=== PATIENT | female | born 1950 | race African-American/Black ===

== ENCOUNTER → 2016-10-13 | Outpatient (CLI) | payer OTHER, MEDICARE ==
--- NOTE | 2016-10-13 12:46 | RAD ---
Examination: MRI of the right proximal lower leg History: History of lateral tibial pain for 2 weeks. comparison: None available Technique: Multiplanar, multisequence MR imaging of the proximal calf was performed without contrast. Findings: The alignment of the proximal tibia-fibula joint grossly appears unremarkable. There is no obvious acute fracture or dislocation identified in the proximal tibia and proximal fibula. At the site of marker placement .on the lateral aspect .no definite evidence of mass or lesion visualized. The visualized neurovascular bundle grossly appears unremarkable. There is minimal edema identified in the subcutaneous region just anterior to the proximal tibia, nonspecific. There is a small nonleaking popliteal cyst identified. Partially visualized knee joint effusion is identified. Subchondral changes identified in the knee joint particularly in the lateral knee joint probably due to degeneration. Impression: 1. No obvious mass or lesion identified at the site of marker placement in the lateral aspect of the calf region. 2. A small leaking popliteal cyst is identified. 3. Moderate degenerative changes knee joint particularly lateral knee joint, recommend MRI right knee for further evaluation 4. Small knee joint effusion partially visualized.
== END | disposition home or self-care (01) ==
LOC: MRI 09:57
PROVIDERS: ATTEND Family Medicine
DX: M17.11 Unilateral primary osteoarthritis, right knee (principal); M71.20 Synovial cyst of popliteal space [Baker], unspecified knee; M25.461 Effusion, right knee
CPT/HCPCS: 73718

== ENCOUNTER → 2017-12-26 | Outpatient (CLI) | payer OTHER ==
[2017-12-26 14:31] LABS: ADD MAN DIFF? NO
[2017-12-26 14:36] LABS: BASO # 0.1 x10^3/uL (0.0-0.2); BASO % 1 % (0-3); EOS # 0.2 x10^3/uL (0.0-0.7); EOS % 2 % (0-3); HEMATOCRIT 44.5 % (36.0-47.0); HEMOGLOBIN 15.6 g/dL (12.0-15.5); LYMPH # 1.8 x10^3/uL (1.0-4.8); LYMPH % 20 % (24-48); MEAN CORPUSCULAR HEMOGLOBIN 32 pg (25-35); MEAN CORPUSCULAR HGB CONC 35 g/dL (31-37); MEAN CORPUSCULAR VOLUME 93 fL (79-100); MONO # 0.5 x10^3/uL (0.0-1.1); MONO % 6 % (0-9); NEUT # 6.5 x10^3uL (1.8-7.7); NEUT % 71 % (31-73); PLATELET COUNT 280 x10^3/uL (140-400); RED BLOOD COUNT 4.81 x10^6/uL (3.50-5.40); RED CELL DISTRIBUTION WIDTH 14.9 % (11.5-14.5); WHITE BLOOD COUNT 9.1 x10^3/uL (4.0-11.0)
[2017-12-26 14:46] LABS: PARTIAL THROMBOPLASTIN TIME 30 SEC (24-38); PROTHROMBIN TIME PATIENT 12.2 SEC (11.7-14.0)
[2017-12-26 14:54] LABS: ALBUMIN 3.6 g/dL (3.4-5.0); ANION GAP 10 (6-14); BLOOD UREA NITROGEN 17 mg/dL (7-20); CALCIUM 9.1 mg/dL (8.5-10.1); CARBON DIOXIDE 26 mmol/L (21-32); CHLORIDE 108 mmol/L (98-107); CREATININE 1.1 mg/dL (0.6-1.0); GFR 60.1; GLUCOSE 133 mg/dL (70-99); POTASSIUM 3.5 mmol/L (3.5-5.1); SODIUM 144 mmol/L (136-145)
[2017-12-26 15:33] LABS: BILIRUBIN,URINE SMALL (NEG); CLARITY,URINE CLEAR; COLOR,URINE YELLOW; GLUCOSE,URINE NEGATIVE (NEG); NITRITE,URINE NEGATIVE (NEG); PROTEIN,URINE 30 mg/dL (NEG-TRACE)
[2017-12-26 16:09] LABS: BACTERIA,URINE FEW /HPF (0-FEW); RBC,URINE OCC /HPF (0-2); SQUAMOUS EPITHELIAL CELL,UR FEW /LPF
[2017-12-26 16:10] LABS: HYALINE CASTS, URINE FEW /HPF
[2017-12-26 16:22] LABS: SEDIMENTATION RATE 32 (0-25)
[2017-12-27 04:21] LABS: HEMOGLOBIN A1C 6.8 % (4.8-5.6)
[2017-12-27 06:21] LABS: MRSA BY PCR Negative (Negative)
== END | disposition home or self-care (01) ==
LOC: SURGPAT 13:26
DX: I70.0 Atherosclerosis of aorta (principal); R79.1 Abnormal coagulation profile
CPT/HCPCS: 36415; 71046; 80048; 81001; 82040; 83036; 85025; 85610; 85651; 85730; 87086; 87641; 93005

== ENCOUNTER → 2018-02-07 | Outpatient (CLI) | payer OTHER | END | disposition home or self-care (01) | LOC: US 08:38 | DX: M79.605 Pain in left leg (principal); M79.89 Other specified soft tissue disorders | CPT/HCPCS: 93971 ==

== ENCOUNTER 2019-10-02 02:49 | Emergency (ER) | payer OTHER, MEDICARE ==
[~2019-10-02] VITALS: Ht 160 cm; Wt 92.3 kg
[~2019-10-02 02:49] MED LIST: AMLO5TAB10 PO; IBUP-1027 PO; RIVA10TA PO
[2019-10-02] MEDS ORDERED: NITROGLYCERIN SUBLINGUAL 0.4 MG BOTTLE OF 25. SL PRN (03:00)
--- NOTE | 2019-10-02 03:08 | PHYS DOC ---
Past Medical History Smoking Status: Current Every Day Smoker Adult General Chief Complaint Chief Complaint: CHEST PAIN HPI HPI 69-year-old female presents to the emergency room complaints of left chest pain, left breast pain, shortness of breath. Patient states it comes and goes, she d escribes the pain as achy sensation. She denies any nausea or vomiting. This happened possibly 1 hour prior to her arrival. She denies any past medical history including coronary artery disease. She does have history of hypertension as well as diabetes. She denies any new medications. She does states she's had a history of blood clots been on anticoagulation approximately 18 years ago. Nothing makes her pain worse, nothing makes her pain better. She denies any headache, visual change, nausea, vomiting, abdominal pain Review of Systems Review of Systems Constitutional: Denies fever or chills [] Respiratory: + sob Cardiovascular: No additional information not addressed in HPI [] GI: Denies abdominal pain, nausea, vomiting, bloody stools or diarrhea [] Musculoskeletal: Denies back pain or joint pain [] Integument: Denies rash or skin lesions [] Neurologic: Denies headache, focal weakness or sensory changes [] All other systems were reviewed and found to be within normal limits, except as documented in this note. Current Medications Current Medications Current Medications Medications (Trade) Dose Ordered Sig/[facility] Start Time Stop Time Status Last Admin Dose Admin Aspirin (Children'S Aspirin) 324 mg 1X ONCE 10/02/19 03:30 10/02/19 03:31 DC 10/02/19 03:12 324 MG Info (CONTRAST GIVEN -- Rx MONITORING) 1 each PRN DAILY PRN 10/02/19 04:15 10/04/19 04:14 Iohexol (Omnipaque 350 Mg/ml) 90 ml 1X ONCE 10/02/19 04:30 10/02/19 04:31 DC 10/02/19 04:14 90 ML Nitroglycerin (Nitrostat) 0.4 mg PRN Q5MIN PRN 10/02/19 03:00 10/03/19 02:59 10/02/19 03:12 0.4 MG Allergies Allergies Allergies Coded Allergies Type Severity Reaction Last Updated Verified No Known Drug Allergies 12/26/17 No Physical Exam Physical Exam Constitutional: Well developed, well nourished, no acute distress, non-toxic appearance. [] HENT: Normocephalic, atraumatic, bilateral external ears normal, oropharynx moist, no oral exudates, nose normal. [] Eyes: PERRLA, EOMI, conjunctiva normal, no discharge. [] Cardiovascular:Heart rate regular rhythm, no murmur [] Lungs & Thorax: Bilateral breath sounds clear to auscultation [] Abdomen: Bowel sounds normal, soft, no tenderness, no masses, no pulsatile masses. [] Skin: Warm, dry, no erythema, no rash. [] Extremities: No tenderness, no edema. [] Neurologic: Alert and oriented X 3, no focal deficits noted. [] Psychologic: Affect normal, judgement normal, mood normal. [] Current Patient Data Vital Signs Vital Signs Date Time Temp Pulse Resp B/P (MAP) Pulse Ox O2 Delivery O2 Flow Rate FiO2 10/02/19 03:49 88 18 156/82 (106) 98 Room Air 10/02/19 02:50 97.5 97.5 Lab Values Laboratory Tests Test 10/02/19 03:20 10/02/19 03:22 Urine Collection Type Unknown Urine Color Yellow Urine Clarity Clear Urine pH 7.0 Urine Specific [place] 1.010 Urine Protein Negative mg/dL (NEG-TRACE) Urine Glucose (UA) Negative mg/dL (NEG) Urine Ketones (Stick) Negative mg/dL (NEG) Urine Blood Trace (NEG) Urine Nitrite Negative (NEG) Urine Bilirubin Negative (NEG) Urine Urobilinogen Dipstick 0.2 mg/dL (0.2 mg/dL) Urine Leukocyte Esterase Small (NEG) Urine RBC 1-2 /HPF (0-2) Urine WBC 5-10 /HPF (0-4) Urine Squamous Epithelial Cells Few /LPF Urine Bacteria 0 /HPF (0-FEW) Urine Mucus Slight /LPF Urine Opiates Screen Neg (NEG) Urine Methadone Screen Neg (NEG) Urine Barbiturates Neg (NEG) Urine Phencyclidine Screen Neg (NEG) Urine Amphetamine/Methamphetamine Neg (NEG) Urine Benzodiazepines Screen Neg (NEG) Urine Cocaine Screen Neg (NEG) Urine Cannabinoids Screen Neg (NEG) Urine Ethyl Alcohol Neg (NEG) White Blood Count 5.5 x10^3/uL (4.0-11.0) Red Blood Count 3.86 x10^6/uL (3.50-5.40) Hemoglobin 13.1 g/dL (12.0-15.5) Hematocrit 38.7 % (36.0-47.0) Mean Corpuscular Volume 100 fL (79-100) Mean Corpuscular Hemoglobin 34 pg (25-35) Mean Corpuscular Hemoglobin Concent 34 g/dL (31-37) Red Cell Distribution Width 15.4 % (11.5-14.5) H Platelet Count 219 x10^3/uL (140-400) Neutrophils (%) (Auto) 68 % (31-73) Lymphocytes (%) (Auto) 17 % (24-48) L Monocytes (%) (Auto) 12 % (0-9) H Eosinophils (%) (Auto) 2 % (0-3) Basophils (%) (Auto) 1 % (0-3) Neutrophils # (Auto) 3.7 x10^3/uL (1.8-7.7) Lymphocytes # (Auto) 0.9 x10^3/uL (1.0-4.8) L Monocytes # (Auto) 0.7 x10^3/uL (0.0-1.1) Eosinophils # (Auto) 0.1 x10^3/uL (0.0-0.7) Basophils # (Auto) 0.0 x10^3/uL (0.0-0.2) D-Dimer (Reena) 0.80 ug/mlFEU (0.00-0.50) H Sodium Level 143 mmol/L (136-145) Potassium Level 3.6 mmol/L (3.5-5.1) Chloride Level 106 mmol/L (98-107) Carbon Dioxide Level 26 mmol/L (21-32) Anion Gap 11 (6-14) Blood Urea Nitrogen 15 mg/dL (7-20) Creatinine 0.9 mg/dL (0.6-1.0) Estimated GFR (Cockcroft-Gault) 75.3 BUN/Creatinine Ratio 17 (6-20) Glucose Level 132 mg/dL (70-99) H Calcium Level 8.9 mg/dL (8.5-10.1) Magnesium Level 2.0 mg/dL (1.8-2.4) Total Bilirubin 0.2 mg/dL (0.2-1.0) Aspartate Amino Transferase (AST) 23 U/L (15-37) Alanine Aminotransferase (ALT) 22 U/L (14-59) Alkaline Phosphatase 141 U/L (46-116) H Troponin I Quantitative < 0.017 ng/mL (0.000-0.055) IC-Vyc-B-Type Natriuretic Peptide 43 pg/mL (0-124) Total Protein 6.9 g/dL (6.4-8.2) Albumin 3.5 g/dL (3.4-5.0) Albumin/Globulin Ratio 1.0 (1.0-1.7) Laboratory Tests 10/02/19 03:22 Laboratory Tests 10/02/19 03:22 EKG EKG EKG reviewed interpretation time 0 300 normal sinus rhythm, normal axis, no evidence of ST elevation appreciated.[] Radiology/Procedures Radiology/Procedures [address] [address] IMAGING REPORT Signed PATIENT: EMA HOFFMANN ACCOUNT: [id number] : 1950 LOCATION: ER AGE: 69 SEX: F EXAM STATUS: REG ER ORD. PHYSICIAN: AWAIS CABRERA MD REASON: Chest Pain PROCEDURE: PORTABLE CHEST 1V PORTABLE CHEST 1V History: Chest pain Comparison: December 26, 2017 Findings: No consolidation or pleural effusion. Normal heart size. No pneumothorax. Bilateral glenohumeral DJD. Impression: 1. No acute cardiopulmonary process. Electronically signed by: Harjinder Hickey DO (10/02/2019 3:17 AM) [id number] DICTATED and SIGNED BY: HARJINDER HICKEY DO DATE: 10/02/19 0317 [] [address] [address] IMAGING REPORT Signed PATIENT: EMA HOFFMANN ACCOUNT: [id number] : 1950 LOCATION: ER AGE: 69 SEX: F EXAM STATUS: REG ER ORD. PHYSICIAN: AWAIS CABRERA MD REASON: left chest pain, history of DVT/PE, elevated ddimer PROCEDURE: CT ANGIOGRAPHY CHEST CT ANGIOGRAPHY CHEST History: Left chest pain. History of DVT. Technique: CT of the chest was performed with contrast. PE protocol. Maximum intensity projection coronal and sagittal reconstructions were performed. Exposure: One or more of the following individualized dose reduction techniques were utilized for this examination: 1. Automated exposure control 2. Adjustment of the mA and/or kV according to patient size 3. Use of iterative reconstruction technique. Comparison: None Findings: Chest: There regions of eccentric thrombus within the right lower lobe segmental and left lower lobe segmental pulmonary arteries. No occlusion to suggest acute pulmonary embolism. No aortic aneurysm or dissection. Mild atheromatous plaque. Calcified right hilar lymph nodes and calcified pulmonary nodules, likely prior granulomatous disease. Pulmonary emphysema. No consolidation or pleural effusion. Lobulated nodule within the right middle lobe measures 1.0 x 0.8 cm (series 3 image 85). 3 mm 2 mm left upper lobe pulmonary nodule (image 64). Left upper lobe pulmonary nodule (image 46). 3 mm right upper lobe pulmonary nodule (image 54). Upper abdomen: Severe right hydronephrosis partially imaged. Cortical thinning on the right. Bones: No pathologic osseous lesions. Impression: 1. Eccentric thrombus within the bilateral lower lobe pulmonary arteries, may indicate sequelae of chronic embolism. No findings to suggest acute pulmonary embolism. 2. Right middle lobe lobulated nodules. Recommend comparison with prior imaging studies. If prior imaging studies are not available, recommend 3 month follow-up, PET/CT or biopsy. 3. Additional small pulmonary nodules. Recommend attention on follow-up. 4. Pulmonary emphysema. 5. Severe right hydronephrosis with cortical thinning partially imaged. Electronically signed by: Harjinder Hickey DO (10/02/2019 4:40 AM) [id number] DICTATED and SIGNED BY: HARJINDER HICKEY DO DATE: 10/02/19 0440 Course & Med Decision Making Course & Med Decision Making Pertinent Labs and Imaging studies reviewed. (See chart for details) []69-year-old female presents to the emergency room complaints of left chest pain, left breast pain, shortness of breath. Patient states it comes and goes, she describes the pain as achy sensation. She denies any nausea or vomiting. This happened possibly 1 hour prior to her arrival. She denies any past medical history including coronary artery disease. She does have history of hypertension as well as diabetes. She denies any new medications. She does states she's had a history of blood clots been on anticoagulation approximately 18 years ago. Nothing makes her pain worse, nothing makes her pain better. She denies any headache, visual change, nausea, vomiting, abdominal pain Labs reviewed/Imaging reviewed Trop/BNP within normal limits Ddimer - elevated 0.80 (history of DVT/PE) CTA reviewed Dragon Disclaimer Dragon Disclaimer This electronic medical record was generated, in whole or in part, using a voice recognition dictation system. The HEART Score for CP Pts HEART Score for Chest Pain: HEART Score for Chest Pain Response (Comments) Value History Slighlty/Non-Suspicious 0 ECG Normal 0 Age > 65 2 Risk Factors 1 or 2 Risk Factors 1 Troponin < Normal Limit 0 Total 3 Risk Factors: Risk Factors: DM, Current or recent (<one month) smoker, HTN, HLP, family history of CAD, obesity. Risk Scores: Score 0 - 3: 2.5% MACE over next 6 weeks - Discharge Home Score 4 - 6: 20.3% MACE over next 6 weeks - Admit for Clinical Observation Score 7 - 10: 72.7% MACE over next 6 weeks - Early Invasive Strategies Departure Departure Impression: Primary Impression: Chest pain Additional Impression: Pulmonary nodule Disposition: HOME, SELF-CARE Condition: IMPROVED Referrals: ILYA LIU MD (PCP) Patient Instructions: Chest Pain Observation, Pulmonary Nodule, [id number] Additional Instructions: Cardiac enzymes negative x [address] chest without evidence of new/acute PE Right middle lobe nodules. Recommend 3 month follow-up, PET/CT or biopsy. Pulmonary emphysema appreciated on CT Nitroglycerin rx provided from ER - use as directed ASA daily (81mg) Recommend follow up with PCP in 3 - 5 days Scripts Nitroglycerin (NITROGLYCERIN SubLingual) 0.4 Mg Tab.subl 0.4 MG SL PRN Q5MIN PRN for CHEST PAIN, #1 BOTTLE Prov: AWAIS CABRERA MD 10/02/19 Problem Qualifiers Primary Impression: Chest pain Chest pain type: unspecified Qualified Codes: R07.9 - Chest pain, unspecified AWAIS CABRERA MD Oct 02, 2019 03:08
--- NOTE | 2019-10-02 03:21 | RAD ---
PORTABLE CHEST 1V History: Chest pain Comparison: December 26, 2017 Findings: No consolidation or pleural effusion. Normal heart size. No pneumothorax. Bilateral glenohumeral DJD. Impression: 1. No acute cardiopulmonary process. Electronically signed by: Harjinder Hickey DO (10/02/2019 3:17 AM) [id number]
[2019-10-02 03:29] LABS: BASO % 1 % (0-3); EOS # 0.1 x10^3/uL (0.0-0.7); EOS % 2 % (0-3); HEMATOCRIT 38.7 % (36.0-47.0); HEMOGLOBIN 13.1 g/dL (12.0-15.5); LYMPH # 0.9 x10^3/uL (1.0-4.8); LYMPH % 17 % (24-48); MEAN CORPUSCULAR HEMOGLOBIN 34 pg (25-35); MEAN CORPUSCULAR HGB CONC 34 g/dL (31-37); MEAN CORPUSCULAR VOLUME 100 fL (79-100); MONO # 0.7 x10^3/uL (0.0-1.1); MONO % 12 % (0-9); NEUT # 3.7 x10^3/uL (1.8-7.7); NEUT % 68 % (31-73); PLATELET COUNT 219 x10^3/uL (140-400); RED BLOOD COUNT 3.86 x10^6/uL (3.50-5.40); RED CELL DISTRIBUTION WIDTH 15.4 % (11.5-14.5); WHITE BLOOD COUNT 5.5 x10^3/uL (4.0-11.0)
[2019-10-02] MEDS ORDERED: ASPIRIN CHEWABLE 81 MG TABLET. PO ONE (03:30)
[2019-10-02 03:33] LABS: BILIRUBIN,URINE NEGATIVE (NEG); CLARITY,URINE CLEAR; COLOR,URINE YELLOW; NITRITE,URINE NEGATIVE (NEG); PROTEIN,URINE NEGATIVE (NEG-TRACE); UROBILINOGEN,URINE 0.2 mg/dL (0.2 mg/dL)
[2019-10-02 03:38] LABS: AMPHETAMINE/METHAMPHETAMINE NEG (NEG); BARBITURATES NEG (NEG); BENZODIAZEPINES NEG (NEG); CANNABINOIDS NEG (NEG); COCAINE NEG (NEG); METHADONE NEG (NEG); OPIATES NEG (NEG); PHENCYCLIDINE NEG (NEG)
[2019-10-02 03:41] LABS: BACTERIA,URINE 0 /HPF (0-FEW); SQUAMOUS EPITHELIAL CELL,UR FEW /LPF
[2019-10-02 03:49] LABS: CALCIUM 8.9 mg/dL (8.5-10.1); CREATININE 0.9 mg/dL (0.6-1.0); GFR 75.3; POTASSIUM 3.6 mmol/L (3.5-5.1)
[2019-10-02 03:54] LABS: ALBUMIN 3.5 g/dL (3.4-5.0); TOTAL BILIRUBIN 0.2 mg/dL (0.2-1.0); TOTAL PROTEIN 6.9 g/dL (6.4-8.2)
[2019-10-02] MEDS ORDERED: CONTRAST GIVEN. MC PRN (04:15)
[2019-10-02] MEDS ORDERED: IOHEXOL 350 MG/ML 100 ML VIAL. IV ONE (04:30)
--- NOTE | 2019-10-02 04:43 | RAD ---
CT ANGIOGRAPHY CHEST History: Left chest pain. History of DVT. Technique: CT of the chest was performed with contrast. PE protocol. Maximum intensity projection coronal and sagittal reconstructions were performed. Exposure: One or more of the following individualized dose reduction techniques were utilized for this examination: 1. Automated exposure control 2. Adjustment of the mA and/or kV according to patient size 3. Use of iterative reconstruction technique. Comparison: None Findings: Chest: There regions of eccentric thrombus within the right lower lobe segmental and left lower lobe segmental pulmonary arteries. No occlusion to suggest acute pulmonary embolism. No aortic aneurysm or dissection. Mild atheromatous plaque. Calcified right hilar lymph nodes and calcified pulmonary nodules, likely prior granulomatous disease. Pulmonary emphysema. No consolidation or pleural effusion. Lobulated nodule within the right middle lobe measures 1.0 x 0.8 cm (series 3 image 85). 3 mm 2 mm left upper lobe pulmonary nodule (image 64). Left upper lobe pulmonary nodule (image 46). 3 mm right upper lobe pulmonary nodule (image 54). Upper abdomen: Severe right hydronephrosis partially imaged. Cortical thinning on the right. Bones: No pathologic osseous lesions. Impression: 1. Eccentric thrombus within the bilateral lower lobe pulmonary arteries, may indicate sequelae of chronic embolism. No findings to suggest acute pulmonary embolism. 2. Right middle lobe lobulated nodules. Recommend comparison with prior imaging studies. If prior imaging studies are not available, recommend 3 month follow-up, PET/CT or biopsy. 3. Additional small pulmonary nodules. Recommend attention on follow-up. 4. Pulmonary emphysema. 5. Severe right hydronephrosis with cortical thinning partially imaged. Electronically signed by: Harjinder Hickey DO (10/02/2019 4:40 AM) [id number]
[2019-10-02] MEDS ORDERED: NITR0.4T22 SL (04:56)
[2019-10-02 05:54] VITALS: BP 148/84
--- NOTE | 2019-10-02 06:08 | EKG ---
[facility] [address] [place] [address] Test Date: 2019-10-02 Test Time: 03:00:50 Pat Name: EMA HOFFMANN Department: Room: Gender: F Hr Clerk: : 1950 Requested By: AWAIS CABRERA Order Number: [id number] Reading MD: Measurements Intervals [place] Rate: 103 P: 54 SD: 192 QRS: 36 QRSD: 82 T: 54 QT: 336 QTc: 442 Interpretive Statements SINUS TACHYCARDIA ATRIAL PREMATURE COMPLEX(ES) OTHERWISE NORMAL ECG No previous ECG available for comparison
== END 2019-10-02 05:58 | disposition home or self-care (01) ==
LOC: ER 02:49
DX: R07.89 Other chest pain (principal); R91.8 Other nonspecific abnormal finding of lung field; N64.4 Mastodynia; R06.02 Shortness of breath; F17.200 Nicotine dependence, unspecified, uncomplicated; Z79.82 Long term (current) use of aspirin
CPT/HCPCS: 36415; 71045; 71275; 80053; 80307; 81001; 83735; 83880; 84484; 85025; 85379; 87086; 93005; 99285; Q9967

== ENCOUNTER 2021-03-27 18:35 | Emergency (ER) | payer OTHER, MEDICARE ==
[~2021-03-27] VITALS: Ht 162.6 cm; Wt 88.6 kg
[~2021-03-27 18:35] MED LIST changes: +AMLO-186 PO; -AMLO5TAB10 PO; +NITR0.4T22 SL
--- NOTE | 2021-03-27 22:34 | ED.ADGEN ---
Past Medical History Past Medical History: Diabetes-Type II, Hypertension, Other Additional Past Medical Histor: SKIN CANCER, BLOOD CLOTS Past Surgical History: Hysterectomy, Other Additional Past Surgical Histo: LEFT SHOULDER, CARPAL TUNNEL, CANCER REMOVAL SURGERY Smoking Status: Never Smoker Alcohol Use: None General Adult EDM: Chief Complaint: ABDOMINAL PAIN HPI: HPI: Patient is a 71 year old female coming in for left-sided abdominal pain. Patient states the pain has been mostly with "it present for the past 3 weeks. See her primary care provider was diagnosed with an acid medication and symptoms not getting better. Patient states she has had. Decreased p.o. intake because she feels full after a few bites of food. Has had a sour taste in her throat. States she normally has daily bowel movements presently been having bowel movements 3 times in the past week. Denies any urinary changes. Denies any abdominal surgical history. Has a history of vulvar cancer treated with chemo and radiation. Has had both of her Covid vaccines. Review of Systems: Review of Systems: All other systems within normal limits except for as noted in the HPI Current Medications: Current Medications Medications (Trade) Dose Ordered Sig/Nick Start Time Stop Time Status Last Admin Dose Admin Fentanyl Citrate (Fentanyl 2ml Vial) 75 mcg 1X ONCE 03/27/21 23:00 03/27/21 23:01 DC 03/27/21 23:26 75 MCG Info (CONTRAST GIVEN -- Rx MONITORING) 1 each PRN DAILY PRN 03/27/21 23:45 03/29/21 23:44 Iohexol (Omnipaque 300 Mg/ml) 75 ml 1X ONCE 03/28/21 00:15 03/28/21 00:16 DC 03/27/21 23:58 75 ML Multi-Ingredient Mouthwash/Gargle (Gi Cocktail) 20 ml 1X ONCE 03/28/21 01:30 03/28/21 01:31 DC 03/28/21 01:37 20 ML Ondansetron HCl (Zofran) 4 mg 1X ONCE 03/27/21 23:00 03/27/21 23:01 DC 03/27/21 23:25 4 MG Allergies: Allergies: Allergies Coded Allergies Type Severity Reaction Last Updated Verified adhesive tape Allergy Unknown 03/27/21 Yes Physical Exam: PE: Constitutional: Well developed, well nourished, no acute distress, non-toxic appearance. [] HENT: Normocephalic, atraumatic, bilateral external ears normal, nose normal. [] Eyes: PERRLA, conjunctiva normal, no discharge. [] Neck: No rigidity, supple, no stridor. [] Cardiovascular: Regular rate and rhythm, brisk cap refill [] Lungs & Thorax: Non labored symmetric respirations, no tachypnea or respiratory distress [] Abdomen: Soft, nondistended, guarding palpation on left upper and lower quadrant Skin: Warm, dry, no erythema, no rash. [] Back: Unremarkable Extremities: No deformities, range of motion grossly intact, no lower extremity edema [] Neurologic: Alert and oriented X 3, no focal deficits noted. [] Psychologic: Affect normal, judgement normal, mood normal. [] Current Patient Data: Labs: Laboratory Tests Test 03/27/21 20:07 03/27/21 23:10 Urine Collection Type Unknown Urine Color Yellow Urine Clarity Clear Urine pH 5.5 (<5.0-8.0) Urine Specific Sumner 1.010 (1.000-1.030) Urine Protein Negative mg/dL (NEG-TRACE) Urine Glucose (UA) Negative mg/dL (NEG) Urine Ketones (Stick) Negative mg/dL (NEG) Urine Blood Trace (NEG) Urine Nitrite Negative (NEG) Urine Bilirubin Negative (NEG) Urine Urobilinogen Dipstick 0.2 mg/dL (0.2 mg/dL) Urine Leukocyte Esterase Trace (NEG) Urine RBC Occ /HPF (0-2) Urine WBC 5-10 /HPF (0-4) Urine Squamous Epithelial Cells Few /LPF Urine Bacteria 0 /HPF (0-FEW) Urine Mucus Slight /LPF White Blood Count 5.0 x10^3/uL (4.0-11.0) Red Blood Count 4.16 x10^6/uL (3.50-5.40) Hemoglobin 13.3 g/dL (12.0-15.5) Hematocrit 39.0 % (36.0-47.0) Mean Corpuscular Volume 94 fL (79-100) Mean Corpuscular Hemoglobin 32 pg (25-35) Mean Corpuscular Hemoglobin Concent 34 g/dL (31-37) Red Cell Distribution Width 15.2 % (11.5-14.5) H Platelet Count 278 x10^3/uL (140-400) Neutrophils (%) (Auto) 67 % (31-73) Lymphocytes (%) (Auto) 19 % (24-48) L Monocytes (%) (Auto) 11 % (0-9) H Eosinophils (%) (Auto) 2 % (0-3) Basophils (%) (Auto) 1 % (0-3) Neutrophils # (Auto) 3.4 x10^3/uL (1.8-7.7) Lymphocytes # (Auto) 0.9 x10^3/uL (1.0-4.8) L Monocytes # (Auto) 0.6 x10^3/uL (0.0-1.1) Eosinophils # (Auto) 0.1 x10^3/uL (0.0-0.7) Basophils # (Auto) 0.0 x10^3/uL (0.0-0.2) Sodium Level 138 mmol/L (136-145) Potassium Level 4.0 mmol/L (3.5-5.1) Chloride Level 102 mmol/L (98-107) Carbon Dioxide Level 27 mmol/L (21-32) Anion Gap 9 (6-14) Blood Urea Nitrogen 11 mg/dL (7-20) Creatinine 1.0 mg/dL (0.6-1.0) Estimated GFR (Cockcroft-Gault) 66.3 BUN/Creatinine Ratio 11 (6-20) Glucose Level 99 mg/dL (70-99) Calcium Level 9.5 mg/dL (8.5-10.1) Total Bilirubin 0.4 mg/dL (0.2-1.0) Aspartate Amino Transferase (AST) 16 U/L (15-37) Alanine Aminotransferase (ALT) 20 U/L (14-59) Alkaline Phosphatase 135 U/L (46-116) H Troponin I Quantitative < 0.017 ng/mL (0.000-0.055) QD-Red-X-Type Natriuretic Peptide 161 pg/mL (0-124) H Total Protein 7.7 g/dL (6.4-8.2) Albumin 3.1 g/dL (3.4-5.0) L Albumin/Globulin Ratio 0.7 (1.0-1.7) L Lipase 47 U/L (73-393) L Laboratory Tests 03/27/21 23:10 Laboratory Tests 03/27/21 23:10 Vital Signs: Vital Signs Date Time Temp Pulse Resp B/P (MAP) Pulse Ox O2 Delivery O2 Flow Rate FiO2 03/27/21 23:26 16 96 03/27/21 19:50 98.6 94 139/64 (105) Room Air 98.6 EKG: EKG: Sinus rhythm, heart rate 60 bpm, normal axis, no ST elevation or depression, no ectopy. [] Heart Score: C/O Chest Pain: Yes HEART Score for Chest Pain: HEART Score for Chest Pain Response (Comments) Value History Slighlty/Non-Suspicious 0 ECG Normal 0 Age > 65 2 Risk Factors 1 or 2 Risk Factors 1 Troponin < Normal Limit 0 Total 3 Risk Factors: Risk Factors: DM, Current or recent (<one month) smoker, HTN, HLP, family history of CAD, obesity. Risk Scores: Score 0 - 3: 2.5% MACE over next 6 weeks - Discharge Home Score 4 - 6: 20.3% MACE over next 6 weeks - Admit for Clinical Observation Score 7 - 10: 72.7% MACE over next 6 weeks - Early Invasive Strategies Radiology/Procedures: Radiology/Procedures: [facility] [address] [place], [place] [id number] IMAGING REPORT Signed PATIENT: EMA HOFFMANN ACCOUNT: [id number] : 1950 LOCATION: ER AGE: 71 SEX: F EXAM STATUS: REG ER ORD. PHYSICIAN: KANDY ALEXANDER MD REASON: left abd pain, OMNI 300, 75 ML IV PROCEDURE: CT ABD PELV W/ IV CONTRST ONLY Exam: CT abdomen/pelvis with intravenous contrast Indication: Left-sided abdominal pain Comparison: None Technique: Helical CT imaging performed of the abdomen and pelvis after the intravenous administration of 75 mL Omnipaque 300 intravenous contrast. Sagittal and coronal reformats were obtained. One or more of the following individualized dose reduction techniques were utilized for this examination: 1. Automated exposure control 2. Adjustment of the mA and/or kV according to patient size 3. Use of iterative reconstruction technique. Findings: Lower chest: Lung bases are clear. The heart is normal in size. Liver: The liver is normal in size and diffusely decreased in attenuation. No focal liver lesion. Gallbladder/Biliary Tree: Normal. Pancreas: Mild diffuse pancreatic atrophy. Spleen: There are calcified splenic granulomas. No splenomegaly. Adrenal Glands: Normal. Kidneys/Ureters/Bladder: There is severe right hydroureteronephrosis due to a 9 mm calculus in the mid to distal right ureter. There is an additional 8 mm calculus in the distal right ureter. There is severe diffuse cortical thinning of the right kidney. The left kidney and ureter are normal. The bladder is normal. Reproductive Organs: Uterus is surgically absent. No adnexal mass. Stomach, small bowel, and colon: The stomach, small bowel, appendix, and colon are normal. Vasculature: The infrarenal abdominal aorta is mildly enlarged measuring 2.8 cm. There is moderate calcified aortoiliac atherosclerosis. Lymph Nodes: No lymphadenopathy. Peritoneum and retroperitoneum: No free fluid or free air. Bones: There is grade 1 anterolisthesis at L4-L5 and severe degenerative disc disease at L3-L4, L4-L5, L5-S1. There is a large left paracentral disc protrusion at L3-L4 resulting in severe left lateral recess narrowing, severe central canal narrowing, and severe narrowing of the left neural foramen. Probable moderate to severe canal narrowing at L4-L5 and moderate canal narrowing at L5-S1. There is moderate bilateral foraminal narrowing at L4-L5 and moderate right and mild left foraminal narrowing at L5-S1. There is moderate lower thoracic degenerative disc disease. Impression: 1. Severe chronic right hydroureteronephrosis due to a 9 mm calculus in the mid to distal right ureter. There is an additional 8 mm calculus in the more distal right ureter. There is severe cortical thinning of the right kidney. 2. Severe degenerative disc disease at L3-L4 through L5-S1 with canal and foraminal narrowing. This is greatest at L3-L4 where there is a large left paracentral disc protrusion resulting in severe left lateral recess, canal, and left foraminal narrowing. 3. Hepatic steatosis. 4. Mildly enlarged infrarenal abdominal aorta measuring 2.8 cm. Electronically signed by: Kandy Garcia MD (03/28/2021 1:07 AM) [id number] DICTATED and SIGNED BY: KANDY GARCIA MD DATE: 03/28/21 [id number] [] Course & Med Decision Making: Course & Med Decision Making Patient's work-up unremarkable. Patient states she has a known kidney stone on the right side and is followed with urologist every [address] evidence of etiology explaining patient's left upper quadrant abdominal pain, but history and patient's consult sounds like reflux and pain with eating suggest gastric source. Patient has not had a EGD but has discussed it with her primary care. Patient will try Carafate for symptoms and to call her primary care tomorrow to continue with follow-up with GI for endoscopy. Dragon Disclaimer: Dragon Disclaimer: This electronic medical record was generated, in whole or in part, using a voice recognition dictation system. Departure Departure Impression: Primary Impression: Abdominal pain Disposition: HOME / SELF CARE / HOMELESS Condition: STABLE Referrals: ILYA LIU MD (PCP) Patient Instructions: Abdominal Pain Scripts Sucralfate (CARAFATE) 1 Gm Tablet 1 TAB PO BID PRN for ABDOMINAL PAIN for 10 Days, #20 TAB 0 Refills Prov: KANDY ALEXANDER MD 03/28/21 KANDY ALEXANDER MD Mar 27, 2021 22:34
[2021-03-27 22:47] LABS: BILIRUBIN,URINE NEGATIVE (NEG); CLARITY,URINE CLEAR; COLOR,URINE YELLOW; NITRITE,URINE NEGATIVE (NEG); PH,URINE 5.5 (<5.0-8.0); PROTEIN,URINE NEGATIVE (NEG-TRACE); UROBILINOGEN,URINE 0.2 mg/dL (0.2 mg/dL)
[2021-03-27 22:58] LABS: RBC,URINE OCC /HPF (0-2)
[2021-03-27 22:59] LABS: BACTERIA,URINE 0 /HPF (0-FEW)
[2021-03-27] MEDS ORDERED: ONDANSETRON PF 4 MG/2 ML VIAL. IVP ONE (23:00)
[2021-03-27] MEDS ORDERED: fentaNYL PF VIAL 100 MCG/2 ML VIAL IVP ONE (23:00)
[2021-03-27 23:17] LABS: BASO % 1 % (0-3); EOS # 0.1 x10^3/uL (0.0-0.7); EOS % 2 % (0-3); HEMOGLOBIN 13.3 g/dL (12.0-15.5); LYMPH # 0.9 x10^3/uL (1.0-4.8); LYMPH % 19 % (24-48); MEAN CORPUSCULAR HEMOGLOBIN 32 pg (25-35); MEAN CORPUSCULAR HGB CONC 34 g/dL (31-37); MEAN CORPUSCULAR VOLUME 94 fL (79-100); MONO # 0.6 x10^3/uL (0.0-1.1); MONO % 11 % (0-9); NEUT # 3.4 x10^3/uL (1.8-7.7); NEUT % 67 % (31-73); PLATELET COUNT 278 x10^3/uL (140-400); RED BLOOD COUNT 4.16 x10^6/uL (3.50-5.40); RED CELL DISTRIBUTION WIDTH 15.2 % (11.5-14.5)
[2021-03-27 23:30] LABS: CALCIUM 9.5 mg/dL (8.5-10.1); GFR 66.3
[2021-03-27 23:38] LABS: ALBUMIN 3.1 g/dL (3.4-5.0); ALBUMIN/GLOBULIN RATIO 0.7 (1.0-1.7); TOTAL BILIRUBIN 0.4 mg/dL (0.2-1.0); TOTAL PROTEIN 7.7 g/dL (6.4-8.2)
[2021-03-27] MEDS ORDERED: CONTRAST GIVEN. MC PRN (23:45)
[2021-03-28] MEDS ORDERED: IOHEXOL 300 MG/ML 100ML VIAL. IV ONE (00:15)
--- NOTE | 2021-03-28 00:54 | EKG ---
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
--- NOTE | 2021-03-28 01:10 | RAD ---
Exam: CT abdomen/pelvis with intravenous contrast Indication: Left-sided abdominal pain Comparison: None Technique: Helical CT imaging performed of the abdomen and pelvis after the intravenous administratio n of 75 mL Omnipaque 300 intravenous contrast. Sagittal and coronal reformats were obtained. One or more of the following individualized dose reduction techniques were utilized for this examinat ion: 1. Automated exposure control 2. Adjustment of the mA and/or kV according to patient size 3. Use of iterative reconstruction technique. Findings: Lower chest: Lung bases are clear. The heart is normal in size. Liver: The liver is normal in size and diffusely decreased in attenuation. No focal liver lesion. Gallbladder/Biliary Tree: Normal. Pancreas: Mild diffuse pancreatic atrophy. Spleen: There are calcified splenic granulomas. No splenomegaly. Adrenal Glands: Normal. Kidneys/Ureters/Bladder: There is severe right hydroureteronephrosis due to a 9 mm calculus in the mi d to distal right ureter. There is an additional 8 mm calculus in the distal right ureter. There is s evere diffuse cortical thinning of the right kidney. The left kidney and ureter are normal. The bladd er is normal. Reproductive Organs: Uterus is surgically absent. No adnexal mass. Stomach, small bowel, and colon: The stomach, small bowel, appendix, and colon are normal. Vasculature: The infrarenal abdominal aorta is mildly enlarged measuring 2.8 cm. There is moderate ca lcified aortoiliac atherosclerosis. Lymph Nodes: No lymphadenopathy. Peritoneum and retroperitoneum: No free fluid or free air. Bones: There is grade 1 anterolisthesis at L4-L5 and severe degenerative disc disease at L3-L4, L4-L5 , L5-S1. There is a large left paracentral disc protrusion at L3-L4 resulting in severe left lateral recess narrowing, severe central canal narrowing, and severe narrowing of the left neural foramen. Pr obable moderate to severe canal narrowing at L4-L5 and moderate canal narrowing at L5-S1. There is mo derate bilateral foraminal narrowing at L4-L5 and moderate right and mild left foraminal narrowing at L5-S1. There is moderate lower thoracic degenerative disc disease. Impression: 1. Severe chronic right hydroureteronephrosis due to a 9 mm calculus in the mid to distal right uret er. There is an additional 8 mm calculus in the more distal right ureter. There is severe cortical th inning of the right kidney. 2. Severe degenerative disc disease at L3-L4 through L5-S1 with canal and foraminal narrowing. This is greatest at L3-L4 where there is a large left paracentral disc protrusion resulting in severe left lateral recess, canal, and left foraminal narrowing. 3. Hepatic steatosis. 4. Mildly enlarged infrarenal abdominal aorta measuring 2.8 cm. Electronically signed by: Kandy Garcia MD (03/28/2021 1:07 AM) [id number]
[2021-03-28] MEDS ORDERED: LIDO:MAALOX 1:1 20 ML SINGLE DOSE. SWSW ONE (01:30)
[2021-03-28] MEDS ORDERED: SUCR1TAB35 PO (01:59)
[2021-03-28 02:54] VITALS: BP 149/73
== END 2021-03-28 02:50 | disposition home or self-care (01) ==
LOC: ER 18:35
DX: R10.12 Left upper quadrant pain (principal); R10.32 Left lower quadrant pain; E11.9 Type 2 diabetes mellitus without complications; I10 Essential (primary) hypertension; Z88.8 Allergy status to other drugs, medicaments and biological substances
CPT/HCPCS: 36415; 74177; 80053; 81001; 83690; 83880; 84484; 85025; 87086; 93005; 96374; 96375; 99285; J2405; J3010; Q9967

== ENCOUNTER → 2021-04-26 | Outpatient (CLI) | payer OTHER, MEDICARE ==
[2021-03-28 02:54] VITALS: BP 149/73
[~2021-04-26] MED LIST changes: +AMOX500C PO; +ATOR20TA58 PO; +CLAR-7 PO; +METF500T16 PO; +OMEP40CA7 PO; +POTA10TA12 PO; +SUCR1TAB35 PO
[2021-04-26 09:03] LABS: BASO % 1 % (0-3); EOS # 0.1 x10^3/uL (0.0-0.7); EOS % 2 % (0-3); HEMATOCRIT 42.4 % (36.0-47.0); HEMOGLOBIN 14.2 g/dL (12.0-15.5); LYMPH # 0.8 x10^3/uL (1.0-4.8); LYMPH % 18 % (24-48); MEAN CORPUSCULAR HEMOGLOBIN 32 pg (25-35); MEAN CORPUSCULAR HGB CONC 33 g/dL (31-37); MEAN CORPUSCULAR VOLUME 95 fL (79-100); MONO # 0.4 x10^3/uL (0.0-1.1); MONO % 9 % (0-9); NEUT # 3.1 x10^3/uL (1.8-7.7); NEUT % 70 % (31-73); PLATELET COUNT 254 x10^3/uL (140-400); RED BLOOD COUNT 4.49 x10^6/uL (3.50-5.40); RED CELL DISTRIBUTION WIDTH 15.8 % (11.5-14.5); WHITE BLOOD COUNT 4.4 x10^3/uL (4.0-11.0)
[2021-04-26 09:17] LABS: ALBUMIN 3.7 g/dL (3.4-5.0); CALCIUM 9.4 mg/dL (8.5-10.1); CREATININE 1.2 mg/dL (0.6-1.0); GFR 53.7; POTASSIUM 4.2 mmol/L (3.5-5.1)
[2021-04-26 09:19] LABS: PROTHROMBIN TIME PATIENT 12.9 SEC (11.7-14.0)
--- NOTE | 2021-04-26 15:28 | RAD ---
AP and Lateral Views of the Chest 04/26/2021 12:20 PM Indication: Reason: joint prehab class-hx smoking-preop eval / Spl. Instructions: / History: Comparison: Chest radiograph October 02, 2019 Findings: There is no focal consolidation or infiltrate identified. Mild aortic calcification noted. Heart size is normal. Small calcified granuloma noted lateral right midlung. There is no evidence of pneumothorax or pleural effusion degenerative changes of the thoracic spine are seen without evidence of acute osseous abnormality Impression: No evidence of acute cardiopulmonary process. Electronically signed by: Blayne Braxton MD (04/26/2021 3:26 PM) [id number]
[2021-04-26 23:09] LABS: HEMOGLOBIN A1C 6.8 % (4.8-5.6)
== END ==
LOC: SURGPAT 11:45
PROVIDERS: ATTEND Orthopaedic Surgery
DX: Z01.818 Encounter for other preprocedural examination (principal); J84.10 Pulmonary fibrosis, unspecified; M17.12 Unilateral primary osteoarthritis, left knee; I70.0 Atherosclerosis of aorta
CPT/HCPCS: 36415; 71046; 80048; 82040; 82306; 83036; 85025; 85610; 85651; 85730; 87641

== ENCOUNTER → 2021-05-05 | Outpatient (CLI) | payer OTHER, MEDICARE | LOC: LAB 08:51 | PROVIDERS: ATTEND Orthopaedic Surgery | DX: Z01.818 Encounter for other preprocedural examination (principal); M17.12 Unilateral primary osteoarthritis, left knee | CPT/HCPCS: 36415; 80307 ==

== ENCOUNTER 2021-05-11 07:20 | Observation (INO) | payer OTHER, MEDICARE ==
[2021-04-29 15:54] VITALS: BP 122/65
[~2021-05-11] VITALS: Ht 165.1 cm; Wt 79.5 kg
[2021-05-11] VITALS (12 sets, daily range): BP systolic 107–152; BP diastolic 63–82
[~2021-05-11 07:20] MED LIST changes: +ACETAMINOPHEN 500 MG TABLET PO PRN; +GABAPENTIN 300 MG CAPSULE. PO PRN; +HYDROmorphone 2 MG/ML VIAL IVP PRN; +IV RINGERS,LACTATED 1000ML 1,000 ML IV SCH; +MELOXICAM 7.5 MG TABLET PO PRN; +MORPHINE SULFATE 2 MG/ML INJ. IVP PRN; +MORPHINE SULFATE 5 MG, KETOROLAC 30MG VIAL 30 MG, ROPIVacaine 0.5% PF 60 ML, EPINEPHrin... INT ART ONE; +PROCHLORPERAZINE 10 MG/2 ML VIAL. IVP PRN; +TRANEXAMIC ACID 1,000 MG in IV NS 50ML -- 1ST BAG INJ ONE; +fentaNYL PF VIAL 100 MCG/2 ML VIAL IVP PRN
[2021-05-11] MEDS ORDERED: TRANEXAMIC ACID 1,000 MG in IV NS 50ML -- 2ND BAG INJ ONE (08:00)
[2021-05-11] MEDS ORDERED: MELO15TA23 PO (08:14)
[2021-05-11] MEDS ORDERED: WARF-31 PO (08:14)
[2021-05-11] MEDS: INSULIN LISPRO 100 UNIT/ML 3ML VIAL for OP,RR ONLY. SQ PRN ×3 (08:15→12:15)
--- NOTE | 2021-05-11 08:45 | HP ---
ADMIT DATE: 05/11/2021 ORTHOPEDIC PREOPERATIVE HISTORY AND PHYSICAL CHIEF COMPLAINT: Bilateral knee pain, left worse than right with degenerative change. HISTORY OF PRESENT ILLNESS: The patient indicates knee pain and swelling with limited flexion causing it to give out. She has previously used injections including viscosupplementation without relief. She has also used Voltaren gel and a knee sleeve in the past and had increasingly limited relief with steroid injections at her primary care physician's. PAST MEDICAL HISTORY: Significant for a history of DVT, vulvar cancer, hypertension, diabetes, cholesterol problems. PAST SURGICAL HISTORY: Groin surgery for the vulvar cancer, partial vulvectomy, rotator cuff repair on the left. FAMILY HISTORY: Hypertension and cancer in her mother, hypertension and cancer in her father, some healthy siblings. SOCIAL HISTORY: Previous smoker, has now quit. Denies alcohol or drug use. MEDICATIONS: List is reviewed. ALLERGIES: She has no known drug allergies. REVIEW OF SYSTEMS: Did have a recent upper GI ulcer and has been asymptomatic with that as she is on some medication since then over the past few weeks since it was diagnosed and treated. Denies any chest pain, shortness of breath. No change in bowel or bladder habits recently. Denies any focal weakness, numbness, tingling, recent febrile illness. PHYSICAL EXAMINATION: VITAL SIGNS: Per admission sheet. HEENT: Atraumatic, normocephalic. HEART: Regular rate and rhythm. LUNGS: Clear to auscultation bilaterally. ABDOMEN: Benign. EXTREMITIES: Examination of both knees reveals a slightly more valgus alignment on the right than the left; joint line tenderness both medially and laterally, left sided worse than right; and some pseudolaxity without gross instability. She has [id number] crepitus. Normal alignment, stability, bilateral hips and ankles with intact motor function, distal pulses, sensation, reflexes, skin in both lower extremities throughout. LABORATORY DATA: X-rays show [id number] tricompartmental degenerative changes in both knees. IMPRESSION: Primary osteoarthritis of bilateral knees, left knee pain more so than right. TREATMENT PLAN: I have previously gone over with her risks, benefits, postoperative course of total knee arthroplasty as she has failed nonoperative management. We talked about the possibility of infection, nerve or blood vessel damage, premature wear, loosening, instability, continued pain even with good x-ray findings sometimes, medical or other anesthetic complications among others. All her questions were answered. She wishes to proceed with surgical evaluation and treatment, which will be a left total knee arthroplasty with [facility] observation to follow up. JOSH/ESEQUIEL/NADER DR: Sheeba TID: [id number]
[2021-05-11 09:07] LABS: PROTHROMBIN TIME PATIENT 12.9 SEC (11.7-14.0)
[2021-05-11] MEDS ORDERED: PHENYLEPHRINE in 0.9% NACL PF 1 MG/10 ML SYRINGE. IV ONE (09:20)
[2021-05-11] MEDS ORDERED: LIDOCAINE 2% PF 5 ML VIAL. ONE (09:22)
[2021-05-11] MEDS ORDERED: PROPOFOL 10 MG/ML (20ML) VIAL. IV ONE (09:22)
[2021-05-11] MEDS ORDERED: DEXAMETHASONE SOD PHOS 4 MG/ML VIAL ONE (09:22)
[2021-05-11] MEDS ORDERED: FAMOTIDINE 20 MG/2 ML VIAL ONE (09:23)
[2021-05-11] MEDS ORDERED: SEVOFLURANE > 120 MINUTES. IH ONE (09:23)
[2021-05-11] MEDS ORDERED: ONDANSETRON PF 4 MG/2 ML VIAL. ONE (09:23)
[2021-05-11] MEDS ORDERED: VANCOMYCIN 1 GM VIAL. ONE (09:28)
[2021-05-11] MEDS ORDERED: ZOLPIDEM 5 MG TABLET. PO PRN (09:30)
[2021-05-11] MEDS ORDERED: DEXTROSE 50% 25 GM / 50ML DISP.SYRIN. IV PRN (09:30)
[2021-05-11] MEDS ORDERED: 0.9 % SODIUM CHLORIDE 10 ML DISP.SYRIN. IV PRN (09:30)
[2021-05-11] MEDS ORDERED: CALCIUM CARBONATE 500 MG TAB.CHEW PO PRN (09:30)
[2021-05-11] MEDS ORDERED: fentaNYL PF VIAL 100 MCG/2 ML VIAL ONE ×2 (09:31→11:07)
[2021-05-11] MEDS ORDERED: TRANEXAMIC ACID in NS IVPB 50 ML ONE (10:04)
--- NOTE | 2021-05-11 10:54 | PDOC4 ---
Operative Note Operative Note Date of surgery: 05/11/2021 Preoperative diagnosis: Degenerative arthritis left knee Postoperative diagnosis: Same Operative procedure: Left total knee arthroplasty Surgeon: Linda Assist: Tam ruiz Anesthesia: General Estimated blood loss: 25 cc Complications: None Specimens: Cartilage surfaces to pathology Operative indications: Please see my dictated preoperative history and physical for detailed operative indications and note that we had reviewed preoperatively risks benefits postoperative course of the surgery including the possibility of infection continued pain nerve or blood vessel damage premature wear or loosening instability medical or other anesthetic complications among others and he agrees to proceed with surgical evaluation and treatment having given informed consent Operative text: Patient was identified procedure verified patient placed in the supine position on the operating table. After adequate amounts of general anesthesia were administered the left lower extremity was prepped and draped in standard sterile fashion with a thigh tourniquet and after timeout was performed patient procedure identified and verified the left lower extremity was exsanguin ated by Esmarch bandage tourniquet inflated to 300 mmHg and a midline incision was made followed by a medial parapatellar approach fat pad was excised and patella everted and the distal femur drilled to accommodate the intramedullary cutting guide which was set at 5 degrees with standard distal cut. A tibial cut was made using the extra medullary cutting guide aligned with the second toe and alignment verified. Balancing was confirmed with the drop prem and noted in both flexion and extension, tibia was prepared with a size D persona trial component. Femur was sized at a size 6 and AP lateral chamfer cuts were made and ligament carried out. Excellent stability with a 14 mm trial medial congruent articular surface spacer. Femoral lug holes were drilled and patella was not resurfaced. She had excellent tracking. Trial components were removed thorough irrigation carried out with normal saline solution and the following persona components were cemented in place with polymethylmethacrylate cement: A size D persona natural tibial component and size 6 standard right persona cruciate retaining femur. Excess cement was removed with a curette and a vitamin E medial congruent 14 mm height articular spacer was locked into place and the knee held into extension until cement was dry. Irrigation again carried out with dilute Betadine lavage and normal saline solution and 1 g vancomycin was placed in the knee joint. Retinaculum closed with #1 PDS suture in a running fashion subcutaneous closure with buried Vicryl sutures subcuticular closure with 3-0 strata fix Monocryl. A tamica dressing was placed. Toes were noted to be warm pink following deflation of the tourniquet patient was returned to recovery room in stable condition having tolerated procedure well. Tam ruiz was present for the procedure and assisted in patient positioning prepping draping retraction closure dressings. AUDELIA NOLAN MD May 11, 2021 10:54
[2021-05-11] MEDS ORDERED: INSULIN LISPRO 100 UNIT/ML 3ML VIAL for OP,RR ONLY. SQ ONE ×2 (11:05)
[2021-05-11] MEDS: fentaNYL PF VIAL 100 MCG/2 ML VIAL IVP PRN ×2 (11:11→12:14)
--- NOTE | 2021-05-11 11:45 | RAD ---
EXAM: LEFT KNEE, 2 VIEWS. HISTORY: Left knee arthroplasty. COMPARISON: None. FINDINGS: There are changes of tricompartmental arthroplasty in near-anatomic alignment. No fractures are ident ified. Postprocedural gas is noted. IMPRESSION: 1. Left total knee arthroplasty in expected alignment. Electronically signed by: Uli Shabazz MD (05/11/2021 11:43 AM) [id number]
[2021-05-11] MEDS ORDERED: PROCHLORPERAZINE 5 MG TABLET. PO PRN (12:00)
[2021-05-11] MEDS ORDERED: diphenhydrAMINE 50 MG/ML VIAL IVP PRN (12:00)
[2021-05-11] MEDS ORDERED: fentaNYL PF VIAL 100 MCG/2 ML VIAL IVP PRN (12:00)
[2021-05-11] MEDS ORDERED: MORPHINE SULFATE 2 MG/ML INJ. ONE (12:26)
--- NOTE | 2021-05-11 13:30 | NUR ---
received Dai from recovery. assisted to the bathroom with walker and gait belt. upon returning to bed; became nauseated and had emesis of approx 200 cc undigested food. states her pain was an "8" upon arrival but has gone down to a 7. she has bilateral swelling in her ankles--had that since I had a dvt" daughter at bedside. o2 remains on at 23 l she desats upon resting.
[2021-05-11] MEDS ORDERED: IV NORMAL SALINE 1000ML BAG 1,000 ML IV SCH (15:00)
[2021-05-11] MEDS: MORPHINE SULFATE 2 MG/ML INJ. IVP PRN (15:42)
[2021-05-11] MEDS: ceFAZolin SODIUM IV Push 1 GM VIAL. IVP SCH ×2 (15:45→21:44)
[2021-05-11] MEDS ORDERED: WARFARIN 5 MG TABLET. PO ONE (16:00)
[2021-05-11] MEDS: ONDANSETRON PF 4 MG/2 ML VIAL. IVP SCH (17:49)
[2021-05-11] MEDS: oxyCODONE IR 5 MG TABLET PO PRN ×2 (17:49→21:45)
[2021-05-11] MEDS: FERROUS SULFATE 325 MG TABLET. PO SCH (17:49)
[2021-05-11] MEDS: ONDANSETRON ODT 4 MG TAB.RAPDIS. PO SCH (17:53)
--- NOTE | 2021-05-11 18:00 | NUR ---
medicated with froilan at this time. she is rating her pain an "8" . she was medicated with compazine and Zofran for history of post op n/v and morphine and oxycodone for pain ranging between 6-8 tolerated supper without problems
[2021-05-11] MEDS ORDERED: CLARITHROMYCIN 500 MG TABLET. PO SCH (21:00)
[2021-05-11] MEDS: ATORVASTATIN CALCIUM 20 MG TABLET PO SCH (21:45)
[2021-05-12] MEDS: oxyCODONE IR 5 MG TABLET PO PRN ×5 (02:57→20:17)
[2021-05-12] MEDS: ceFAZolin SODIUM IV Push 1 GM VIAL. IVP SCH (02:58)
[2021-05-12 03:00] VITALS: BP 116/61
[2021-05-12] MEDS ORDERED: GABAPENTIN 100 MG CAPSULE. PO SCH (06:00)
[2021-05-12] MEDS: ONDANSETRON ODT 4 MG TAB.RAPDIS. PO SCH ×3 (06:00→12:00)
[2021-05-12] MEDS: ONDANSETRON PF 4 MG/2 ML VIAL. IVP SCH ×3 (06:00→12:00)
[2021-05-12] MEDS ORDERED: MAGNESIUM HYDROXIDE 2,400 MG/30 ML ORAL.SUSP. PO PRN (06:00)
[2021-05-12 06:31] VITALS: BP 103/73
[2021-05-12] MEDS: traMADol 50 MG TABLET PO SCH ×3 (07:29→17:34)
[2021-05-12] MEDS: ACETAMINOPHEN 500 MG TABLET PO SCH ×3 (07:29→21:28)
[2021-05-12] MEDS: PANTOPRAZOLE 40 MG TABLET.DR. PO SCH (07:29)
[2021-05-12] MEDS: MELOXICAM 7.5 MG TABLET PO SCH (07:54)
[2021-05-12] MEDS: SENNOSIDES/DOCUSATE 8.6/50MG TABLET. PO SCH (07:54)
[2021-05-12] MEDS: MULTIVITAMIN with MINERAL TABLET. PO SCH (07:55)
[2021-05-12] MEDS: FERROUS SULFATE 325 MG TABLET. PO SCH ×2 (07:55→16:02)
[2021-05-12] MEDS: metFORMIN 500 MG TABLET PO SCH (07:55)
[2021-05-12] MEDS: POTASSIUM CHLORIDE 10 MEQ TABLET.ER. PO SCH (07:55)
[2021-05-12] MEDS ORDERED: FLU VACC QUAD 21-22 (6MOS+) PF 0.5 ML SYRINGE. VAX IM ONE (09:00)
[2021-05-12 09:05] LABS: PROTHROMBIN TIME PATIENT 14.7 SEC (11.7-14.0)
--- NOTE | 2021-05-12 13:52 | NUR ---
Pharmacy Warfarin Dosing Note S: Pharmacy consulted to assist with anticoagulation therapy started 05/10/21 O: EMA HOFFMANN is a 71 year old F with TKA LABS: Last INR: 1.2 Last HGB: - Last HCT: - Last PLT: - Last dose of 5 mg given on 05/11/21 at 1749 Vitamin K given: A:INR of 1.2 is below desired range. Target range for this patient is: 1.6 - 2.5 P: Warfarin dose: 5 mg Today at 1600 Bridge Therapy: None Next INR due tomorrow Pharmacy anticoagulation service will continue to follow. Laine Metz RPH, 05/12/21 [id number]
[2021-05-12] MEDS ORDERED: BISACODYL 10 MG SUPP.RECT. PR PRN (16:00)
[2021-05-12] MEDS ORDERED: WARFARIN 5 MG TABLET. PO ONE (16:00)
[2021-05-12] MEDS ORDERED: ONDANSETRON PF 4 MG/2 ML VIAL. IVP PRN (18:00)
[2021-05-12] MEDS ORDERED: ONDANSETRON ODT 4 MG TAB.RAPDIS. PO PRN (18:00)
[2021-05-12 18:39] VITALS: BP 125/73
--- NOTE | 2021-05-12 20:05 | PDOC ---
PROGRESS NOTES Date of Service DATE: 05/12/21 TIME: 20:00 Subjective Subjective Problems overnight: Doing well this morning minimal complaints pain well controlled Objective Vital Signs Vital Signs Date Time Temp Pulse Resp B/P (MAP) Pulse Ox O2 Delivery O2 Flow Rate FiO2 05/12/21 18:39 98.5 101 18 125/73 (90) 93 Nasal Cannula 2.0 98.5 Physical Exam Good early range of motion tamica dressing intact good stability and tracking distal neurovascular status intact Labs Laboratory Tests Test 05/11/21 07:57 05/11/21 08:00 05/11/21 10:56 05/11/21 12:07 Glucose (Fingerstick) 124 mg/dL (70-99) 183 mg/dL (70-99) 151 mg/dL (70-99) Prothrombin Time 12.9 SEC (11.7-14.0) Prothromb Time International Ratio 1.0 (0.8-1.1) Activated Partial Thromboplast Time 34 SEC (24-38) Test 05/11/21 16:37 05/11/21 19:22 05/12/21 06:15 05/12/21 08:15 Glucose (Fingerstick) 156 mg/dL (70-99) 257 mg/dL (70-99) 119 mg/dL (70-99) Prothrombin Time 14.7 SEC (11.7-14.0) Prothromb Time International Ratio 1.2 (0.8-1.1) Test 05/12/21 12:19 05/12/21 16:45 Glucose (Fingerstick) 125 mg/dL (70-99) 154 mg/dL (70-99) Laboratory Tests Test 05/12/21 06:15 05/12/21 08:15 05/12/21 12:19 05/12/21 16:45 Glucose (Fingerstick) 119 mg/dL (70-99) 125 mg/dL (70-99) 154 mg/dL (70-99) Prothrombin Time 14.7 SEC (11.7-14.0) Prothromb Time International Ratio 1.2 (0.8-1.1) Imaging Postop x-rays show excellent alignment sizing total knee arthroplasty Assessment Assessment POD#1 left total knee arthroplasty Plan Plan of Care Continue warfarin anticoagulation per pharmacy Pain control with oxycodone/tramadol depending on severity Likely home health on discharge Justicifation of Admission Dx: Justifications for Admission: Justification of Admission Dx: N/A AUDELIA NOLAN MD May 12, 2021 20:05
[2021-05-12] MEDS ORDERED: TRAM50TA PO (20:22)
[2021-05-12] MEDS ORDERED: OXYC5CAP PO (20:22)
--- NOTE | 2021-05-12 20:30 | SNU/HH DC ---
DISCHARGE WITH HOME HEALTH DISCHARGE INFORMATION: Discharge Date: May 13, 2021 Final Diagnosis: Status post total knee arthroplasty Condition on Discharge: Stable CODE STATUS: Code Status: Full HOME HEALTH: Face to Face: I certify this patient is under my care and that I, or a nurse practitioner or physician's medical receptionist medical assistant working with me, had a face to face encounter that meets the physician face to face encounter requirements with this patient on [05/12/21]. Medical Complications: DM, S/P Joint Replacement Long Term For: Assess/Skilled Observatio RN For Eval/Treatment: Yes Physical Therapy For: Evalulation/Treatment Pt Meets Homebound Status: Limited distance walking POST DISCHARGE ORDERS: Activity Instructions for Disc: Activity as tolerated Bathing Instructions: Shower-keep dressing dry DIET AFTER DISCHARGE: ADA Wound/Incision Care: Ice to area for comfort, Do not change dressing (Maintain tamica dressing, call if saturated, otherwise remove suction machine when it stops at 1 week and cut and tape over the tail of dressing to maintain seal) FOLLOW-UP: Follow up with: Dr. Mckeon or Rex 2 weeks postop Warfarin Follow UP: [facility] to manage warfarin dosage and testing TREATMENT/EQUIPMENT ORDERS: Adaptive Equipment Issued: None CERTIFICATION STATEMENT: Certification Statement: Certification Statement: Based on the above finding, I certify that this patient is confined to the home and needs intermittent fci care, physical therapy and/or speech therapy, or continues to need occupational therapy.~ This patient is under my care, and I have initiated the establishment of the plan of care.~ This patient will be followed by myself or a community physician who will periodically review the plan of care. Home Meds Active Scripts Tramadol Hcl (TRAMADOL HCL) 50 Mg Tablet, 50 MG PO Q4HRS PRN for MODERATE PAIN 4-6, #40 TAB Prov:AUDELIA MCKEON MD 05/12/21 Oxycodone Hcl (OXYCODONE HCL) 5 Mg Capsule, 5 MG PO PRN Q4HRS PRN for SEVERE PAIN 7-10, #40 TAB 0 Refills Prov:AUDELIA MCKEON MD 05/12/21 Reported Medications Meloxicam (MELOXICAM) 15 Mg Tablet, 15 MG PO 1X for pre surgery, TAB 05/11/21 Warfarin Sodium (WARFARIN SODIUM) 5 Mg Tablet, 5 MG PO 1X for pre surgery, #30 TAB 05/11/21 Potassium Chloride (KLOR-CON 10) 10 Meq Tablet.er, 10 MEQ PO DAILY for VITAMIN, TAB 04/23/21 Atorvastatin Calcium (ATORVASTATIN CALCIUM) 20 Mg Tablet, 20 MG PO HS for FOR CHOLESTEROL, #30 TAB 0 Refills 04/23/21 Amoxicillin (AMOXICILLIN) 500 Mg Capsule, 500 MG PO BID for H. PYLORI ULCER, CAP 0 Refills 04/23/21 Clarithromycin (CLARITHROMYCIN) 500 Mg Tablet, 500 MG PO BID for H. PYLORI ULCER, TAB 04/23/21 Omeprazole (OMEPRAZOLE) 40 Mg Capsule.dr, 40 MG PO BIDAC for GERD AND ULCER, CAP 04/23/21 Metformin Hcl (METFORMIN HCL) 500 Mg Tablet, 500 MG PO DAILYAC for ANTI- DIABETIC, TAB 0 Refills 04/23/21 Amlodipine Besylate (AMLODIPINE BESYLATE) 5 Mg Tablet, 5 MG PO DAILY, TAB 12/26/17 AUDELIA MCKEON MD May 12, 2021 20:30
[2021-05-12] MEDS: ATORVASTATIN CALCIUM 20 MG TABLET PO SCH (21:28)
[2021-05-13] MEDS: traMADol 50 MG TABLET PO SCH ×3 (00:52→12:44)
[2021-05-13] MEDS: ACETAMINOPHEN 500 MG TABLET PO SCH ×3 (03:00→16:33)
[2021-05-13] MEDS: PANTOPRAZOLE 40 MG TABLET.DR. PO SCH (05:50)
[2021-05-13 06:00] VITALS: BP 132/72
--- NOTE | 2021-05-13 06:27 | NUR ---
Temp 100.0, pulse 110. Encouraged pt to use IS. Demonstrates 1500cc. Tramadol given po.
[2021-05-13] MEDS: oxyCODONE IR 5 MG TABLET PO PRN (06:49)
[2021-05-13] MEDS: MULTIVITAMIN with MINERAL TABLET. PO SCH (08:33)
[2021-05-13] MEDS: MORPHINE SULFATE 2 MG/ML INJ. IVP PRN (08:33)
[2021-05-13] MEDS: SENNOSIDES/DOCUSATE 8.6/50MG TABLET. PO SCH (08:34)
[2021-05-13] MEDS: POTASSIUM CHLORIDE 10 MEQ TABLET.ER. PO SCH (08:34)
[2021-05-13] MEDS: metFORMIN 500 MG TABLET PO SCH (08:34)
[2021-05-13] MEDS: MELOXICAM 7.5 MG TABLET PO SCH (08:35)
[2021-05-13] MEDS: FERROUS SULFATE 325 MG TABLET. PO SCH ×2 (08:35→16:30)
[2021-05-13 09:37] LABS: HEMATOCRIT 32.8 % (36.0-47.0); HEMOGLOBIN 11.1 g/dL (12.0-15.5)
[2021-05-13 09:53] LABS: PROTHROMBIN TIME PATIENT 15.7 SEC (11.7-14.0)
[2021-05-13 11:15] VITALS: BP 121/66
[2021-05-13] MEDS ORDERED: oxyCODONE IR 5 MG TABLET PO PRN (13:15)
[2021-05-13] MEDS ORDERED: WARFARIN 3 MG TABLET. PO ONE (14:00)
[2021-05-13] MEDS ORDERED: WARF-31 PO (14:15)
[2021-05-13 15:48] VITALS: BP 117/63
--- NOTE | 2021-05-13 17:30 | NUR ---
RESTING QUIETLY. DAUGHTER HERE. READY TO GO HOME. REVIEWED WRITTEN DISCHARGE INSTRUCTIONS AND MEDICATIONS . REVIEWED RESTRICTIONS TO ACTIVITIES OF DAILY LIVING. QUESTIONS ANSWERED REGARDING INCISIONAL CARE/LUCAS DRESSING AND FOLLOW UP WITH PHYSICIAN. DISMISSED TO HOME WITH DAUGHTER. MEDICATED WITH OXYCODONE AND COUMADIN PRIOR TO DISMISSAL
--- NOTE | 2021-05-14 09:41 | CONS ---
DATE OF CONSULTATION: 05/12/2021 LOCATION: She is in room 458. SUBJECTIVE: This 71-year-old female who is well known to followup in the office. She was admitted yesterday by Ortho for a left total knee replacement. She is seen the morning following and states that she feels like she is doing well. She has needed some pain medicine overnight, but feels like things are livable. PAST MEDICAL HISTORY: Remarkable for vulvar cancer, prior DVT, hyperlipidemia, diabetes, hypertension. PAST SURGICAL HISTORY: Remarkable for surgery of the vulva and groin. She has had a prior left rotator cuff repair. FAMILY HISTORY: Positive for hypertension and cancer. SOCIAL HISTORY: She is a former smoker. Denies alcohol or drug use. She is single. MEDICATIONS: Brought with the patient, listed on the computer have been addressed. ALLERGIES: She has no known drug allergies. REVIEW OF SYSTEMS: As mentioned above. PHYSICAL EXAMINATION: GENERAL: She is a well-developed, well-nourished female in no acute distress. VITAL SIGNS: Stable. She is afebrile. CHEST: Clear to auscultation and percussion. HEART: Regular rate and rhythm without S3, S4 or murmur. ABDOMEN: Soft, nontender, without hepatosplenomegaly or masses. EXTREMITIES: Reveal left knee dressed postop. NEUROLOGIC: She is intact including the distal leg. IMPRESSION: 1. Left total knee replacement. 2. Diabetes. 3. Hypertension. 4. History of vulvar cancer. PLAN: We will follow along with you postoperative period for problems as they arise up-to-date, she seems to be doing extremely well. LAZARO DR: Ronny TID: [id number]
--- NOTE | 2021-05-14 09:44 | PN ---
DATE: 05/13/2021 LOCATION: She is in room 458. SUBJECTIVE: This 71-year-old female, well known to me, followed up in the office. She is status post left total knee replacement 2 days ago. She had more pain yesterday after therapy, but generally feels like it is tolerable. She is having difficulty raising her leg. OBJECTIVE: VITAL SIGNS: Stable. She has had T-max this morning of 100. GENERAL: She is awake, alert, eating breakfast. CHEST: Clear. HEART: Regular. ABDOMEN: Benign. EXTREMITIES: Left knee is dressed. IMPRESSION: 1. Status post total knee replacement, postoperative day #2. 2. Diabetes with good blood sugars. 3. Anticoagulation ongoing with warfarin. PLAN: Continue therapy. Discharge planning per Ortho. MICHEAL/CITLALI/NADER DR: MICHEAL/emerita TID: [id number]
--- NOTE | 2021-05-14 17:09 | PATHOLOGY ---
[facility] Accession Number: [id number] . 01 Material submitted: . bone - LEFT KNEE BONE AND TISSUE. Modifiers: left . 01 Clinical history: . OSTEOARTHRITIS LEFT TOTAL KNEE ARTHROPLASTY . 02 Diagnosis: Segments of bone and focal attached soft tissue, left total knee arthroplasty: - Advanced degenerative arthritis. (JPM:[facility]; 05/14/2021) QTP 05/14/2021 1619 Local . 02 Electronically signed: . Chris Juarez MD, Pathologist NPI- [id number] . 01 Gross description: . The specimen is received in formalin, labeled "Dai Silverman, left knee bone and tissue". Received are multiple segments of bone, including the tibial plateau, with admixed soft tissue, measuring 9.5 x 8.0 x 2.1 cm a in aggregate dimensions. Meniscus is not present. The articular surfaces are light kumar-yellow and smooth and slightly granular with signs of eburnation. Also present are focal areas of articular surface softening and partial detachment measuring 0.8 x 0.4 centimeter as well as minimal osteophytic growths. The specimen is submitted representatively in cassette A1, following decalcification.([facility]; 05/12/2021) [facility] 05/14/2021 0853 Local . 02 Pathologist provided ICD-10: M16.12 . 02 CPT . 943534, [id number] Specimen Comment: A courtesy copy of this report has been sent to [phone], [phone] Specimen Comment: [id number] Specimen Comment: Report sent to / DR LIU Performed at: [address] [place] [id number] MD Wellington Claros MD Phone: [phone] Performed at: [address] [id number] MD Chris Juarez MD Phone: [phone]
--- NOTE | 2021-05-14 21:54 | DS ---
DATE OF DISCHARGE: 05/13/2021 ORTHOPEDIC DISCHARGE SUMMARY PRINCIPAL DIAGNOSIS: Degenerative joint disease of left knee. PROCEDURES: Left total knee arthroplasty. DISPOSITION: Home with home health. DISPOSITION MEDICATIONS: Include oxycodone 5 mg one to two tablets q.4 hours p.r.n. severe pain as needed, tramadol 50 mg p.o. q.4 hours p.r.n. moderate pain, warfarin as directed by anticoagulation clinic and resume preoperative medications. DISCHARGE INSTRUCTIONS: Follow up with Dr. Mckeon in 2 weeks postoperatively. Weightbearing as tolerated, standard total knee protocol. Maintain LUCAS dressing, call if saturated, otherwise when suction machine removed at 1 week, cut tail of dressing and tape over to maintain seal. BRIEF DESCRIPTION OF HOSPITAL COURSE: The patient underwent uncomplicated total knee arthroplasty and initially was having good pain control, but really on postoperative day #2 in particular with her increase in physical therapy, was having increased pain and was increased to a 10 mg dose of oxycodone, which much better controlled her pain. She was otherwise safely ambulating and transferring and was discharged home under stable medical condition with home health followup. MEEK DR: Sheeba TID: [id number]
== END 2021-05-13 17:45 | disposition home health service (06) ==
LOC: SURG 07:20 → 4 SOUTHEST 09:19
PROVIDERS: ADMIT Orthopaedic Surgery; ATTEND Orthopaedic Surgery
DX: M17.12 Unilateral primary osteoarthritis, left knee (principal); I10 Essential (primary) hypertension; E11.9 Type 2 diabetes mellitus without complications; E78.5 Hyperlipidemia, unspecified; Z86.718 Personal history of other venous thrombosis and embolism; Z85.44 Personal history of malignant neoplasm of other female genital organs; Z87.891 Personal history of nicotine dependence; Z96.652 Presence of left artificial knee joint; Z79.899 Other long term (current) drug therapy; Z98.890 Other specified postprocedural states; Z23 Encounter for immunization; Z79.01 Long term (current) use of anticoagulants
CPT/HCPCS: 27446; 36415; 73560; 82962; 85014; 85018; 85610; 85730; 86850; 86900; 86901; 88305; 88311; 90471; 90686; 96361; 96374; 96375; 96376; 97116; 97150; 97162; 97166; 97530; 97535; 99406; A4213; A4930; A6223; A6258; A6450; A6550; C1713; C1776; G0378; G0379; J0171; J0690; J1100; J1815; J1885; J2270; J2370; J2405; J2704; J2795; J3010; J3370; J3490; J7030; Q0164